=== PATIENT | female | born 2000 | race Caucasian/White ===

== ENCOUNTER 2024-04-07 15:11 | Emergency (ER) | payer MEDICAID ==
[~2024-04-07] VITALS: Ht 157.5 cm; Wt 60.0 kg
[2024-04-07 15:34] VITALS: BP 125/85; PULSE 97; RESP 16; TEMP 97.5; O2SAT 98
[2024-04-07] MEDS: RHO(D) immune globulin 1,500 units (300 MCG) syringe IM ONE (18:15)
== END 2024-04-07 18:20 | disposition home or self-care (01) ==
LOC: ER 15:12
DX: O46.8X1 Other antepartum hemorrhage, first trimester (principal); Z3A.08 8 weeks gestation of pregnancy
CPT/HCPCS: 96372; 99283; J2790